=== PATIENT | male | born 1975 | race Caucasian/White ===

== ENCOUNTER → 2019-09-30 | Outpatient (CLI) | payer OTHER ==
--- NOTE | 2019-09-30 11:53 | RADIOLOGY REPORT (SQ) ---
EXAM DESCRIPTION: C SP 4 OR 5 VIEWS IMAGES COMPLETED DATE/TIME: 09/30/2019 11:22 am REASON FOR STUDY: RADICULOPATHY, CERVICAL REGION M25.561 PAIN IN RIGHT KNEE M54.12 RADICULOPATHY, CERVICAL REGION COMPARISON: None. NUMBER OF VIEWS: Five views. TECHNIQUE: AP, lateral, obliques and odontoid radiographic images acquired of the cervical spine. LIMITATIONS: None. FINDINGS: MINERALIZATION: Normal. ALIGNMENT: Anatomic. VERTEBRAE: Vertebral bodies of normal height. DISCS: No significant osteophytes or sclerosis. Disc height maintained. FORAMINA: Moderate to moderate severe narrowing on the left at C3-C4 and mild changes at C4-C5. LATERAL AND POSTERIOR ELEMENTS: Facets, lateral masses and spinous processes without significant find ings. HARDWARE: None in the spine. SOFT TISSUES: No masses or calcifications. Lung apices clear. OTHER: No other significant finding. IMPRESSION: 1. No acute osseous findings. 2. Moderate to moderate foraminal narrowing suggested on the left at C3-C4 and mild changes at C4-C5 . TECHNICAL DOCUMENTATION: JOB ID: [id number] 2010 [employer]- All Rights Reserved Reading location - IP/workstation name: [email or web address]
--- NOTE | 2019-09-30 11:54 | RADIOLOGY REPORT (SQ) ---
EXAM DESCRIPTION: KNEE LEFT 4 VIEWS IMAGES COMPLETED DATE/TIME: 09/30/2019 11:22 am REASON FOR STUDY: PAIN IN LT KNEE M25.561 PAIN IN RIGHT KNEE M54.12 RADICULOPATHY, CERVICAL REGION COMPARISON: None. NUMBER OF VIEWS: Four views. TECHNIQUE: AP, lateral, and both oblique radiographic images acquired of the left knee. LIMITATIONS: None. FINDINGS: MINERALIZATION: Normal. BONES: No acute fracture or dislocation. No worrisome bone lesions. JOINT: No effusion. SOFT TISSUES: No soft tissue swelling. No radio-opaque foreign body. OTHER: No other significant finding. IMPRESSION: 1. NEGATIVE STUDY OF THE LEFT KNEE. TECHNICAL DOCUMENTATION: JOB ID: [id number] 2010 [employer]- All Rights Reserved Reading location - IP/workstation name: [email or web address]
--- NOTE | 2019-09-30 11:56 | RADIOLOGY REPORT (SQ) ---
EXAM DESCRIPTION: KNEE RIGHT 4 VIEWS IMAGES COMPLETED DATE/TIME: 09/30/2019 11:22 am REASON FOR STUDY: PAIN IN RT KNEE M25.561 PAIN IN RIGHT KNEE M54.12 RADICULOPATHY, CERVICAL REGION COMPARISON: None. NUMBER OF VIEWS: Four views. TECHNIQUE: AP, lateral, and both oblique radiographic images acquired of the right knee. LIMITATIONS: None. FINDINGS: MINERALIZATION: Normal. BONES: No acute fracture or dislocation. No worrisome bone lesions. JOINT: No effusion. SOFT TISSUES: No soft tissue swelling. A small opaque pellet in the posterolateral soft tissues of t he upper right lower extremity. OTHER: No other significant finding. IMPRESSION: 1. No acute osseous findings. TECHNICAL DOCUMENTATION: JOB ID: [id number] 2010 [employer]- All Rights Reserved Reading location - IP/workstation name: [email or web address]
== END ==
LOC: OD 10:32
PROVIDERS: ATTEND Family Medicine
DX: M25.561 Pain in right knee (principal); M54.12 Radiculopathy, cervical region
CPT/HCPCS: 72050

== ENCOUNTER 2020-02-16 05:48 | Inpatient (IN) | payer OTHER ==
[2020-02-16 06:33] LABS: ABSOLUTE LYMPHOCYTES (AUTO) 1.3 10^3/uL (0.5-4.7); ABSOLUTE MONOCYTES (AUTO) 0.4 10^3/uL (0.1-1.4); ABSOLUTE NEUT (AUTO) 2.4 10^3/uL (1.7-8.2); BASOPHILS % (AUTO) 0.5 % (0-2); EOSINOPHILS % (AUTO) 0.1 % (0-6); HEMATOCRIT 41.2 % (37.9-51.0); HEMOGLOBIN 13.9 g/dL (13.5-17.0); LYMPHOCYTES % (AUTO) 31.5 % (13-45); MEAN CORPUSCULAR HEMOGLOBIN 27.1 pg (27.0-33.4); MEAN CORPUSCULAR HGB CONC 33.7 g/dL (32.0-36.0); MEAN CORPUSCULAR VOLUME 80 fl (80-97); MONOCYTES % (AUTO) 9.4 % (3-13); PLATELET COUNT 121 10^3/uL (150-450); RED BLOOD COUNT 5.13 10^6/uL (4.35-5.55); RED CELL DISTRIBUTION WIDTH 15.2 % (11.5-14.0); SEGMENTED NEUTROPHILS % (AUTO) 58.5 % (42-78); TOTAL CELLS COUNTED % (AUTO) 100 %
[2020-02-16 06:48] LABS: VENOUS BLOOD BASE EXCESS 2.2 mmol/L; VENOUS BLOOD HCO3 27.1 mmol/L (20-32); VENOUS BLOOD PCO2 43.2 mmHg (35-63); VENOUS BLOOD PH 7.42 (7.30-7.42)
--- NOTE | 2020-02-16 07:00 | RADIOLOGY REPORT (SQ) ---
EXAM DESCRIPTION: XR CHEST 1 VIEW COMPLETED DATE/TME: 02/16/2020 06:38 CLINICAL HISTORY: SOB COMPARISON: None. FINDINGS: Single frontal radiograph view of the chest. Cardiomediastinal silhouette: Normal size and contour. Lungs: Leads overlie the chest. Patchy bilateral airspace opacities. Low lung volumes. No pneumothorax. Respiratory motion artifact. Bones: No acute osseous abnormality. Upper abdomen: No abnormality identified. IMPRESSION: 1. Patchy bilateral airspace opacities concerning for pneumonia.
[2020-02-16 07:08] LABS: APPEARANCE,URINE SLIGHTLY-CLOUDY; BILIRUBIN,URINE NEGATIVE (NEGATIVE); COLOR,URINE YELLOW; GLUCOSE, URINE NEGATIVE (NEGATIVE); KETONES,URINE TRACE mg/dL (NEGATIVE); LEUKOCYTE ESTERASE,URINE NEGATIVE (NEGATIVE); NITRITE,URINE NEGATIVE (NEGATIVE); PROTEIN,URINE 30 mg/dL (NEGATIVE); URINE SPECIFIC GRAVITY 1.024
[2020-02-16 07:14] LABS: ALBUMIN 3.9 g/dL (3.5-5.0); ALKALINE PHOSPHATASE 66 U/L (38-126); ANION GAP 9 (5-19); ASPARTATE AMINO TRANSFERASE 52 U/L (17-59); BILIRUBIN,DIRECT 0.2 mg/dL (0.0-0.4); BILIRUBIN,TOTAL 0.6 mg/dL (0.2-1.3); BLOOD UREA NITROGEN 11 mg/dL (7-20); CALCIUM 8.5 mg/dL (8.4-10.2); CARBON DIOXIDE 28 mmol/L (22-30); CHLORIDE 100 mmol/L (98-107); GLUCOSE 132 mg/dL (75-110); POTASSIUM 4.1 mmol/L (3.6-5.0); TOTAL PROTEIN 7.5 g/dL (6.3-8.2)
[2020-02-16] MEDS ORDERED: AZITHROMYCIN INJ 500 MG VIAL IV ONE (07:39)
[2020-02-16] MEDS ORDERED: NORMAL SALINE 1000 ML 1,000 ML IV ONE (07:41)
[2020-02-16] MEDS ORDERED: ACETAMINOPHEN 325 MG TABLET PO ONE (08:24)
[2020-02-16 09:27] LABS: C-REACTIVE PROTEIN 41.5 mg/L (<10.0)
[2020-02-16 09:37] LABS: NT PRO BNP 18 pg/mL (<125)
[2020-02-16 09:41] LABS: TROPONIN I < 0.012 ng/mL
[2020-02-16] MEDS ORDERED: DEXAMETHASONE SOD PHOS INJ 10 MG/1 ML VIAL IV ONE (09:46)
--- NOTE | 2020-02-16 11:09 | RADIOLOGY REPORT (SQ) ---
EXAM DESCRIPTION: CTA CHEST IMAGES COMPLETED DATE/TIME: 02/16/2020 10:46 am REASON FOR STUDY: sobr/covid positive/elevated d dimer COMPARISON: 02/16/2020 TECHNIQUE: CT scan of the chest performed using helical scanning technique with dynamic intravenous contrast injection. Images reviewed with lung, soft tissue and bone windows. Reconstructed coronal and sagittal MPR images reviewed. Additional 3 dimensional post-processing performed to develop Maximal Intensity Projection images ([place] P). All images stored on PACS. All CT scanners at this facility use dose modulation, iterative reconstruction, and/or weight based d osing when appropriate to reduce radiation dose to as low as reasonably achievable (ALARA). [facility]: Dose Right [facility]: CareDose [facility]: Dose Right [facility]: Teradose 4D [facility]: [employer] CONTRAST TYPE AND DOSE: contrast/concentration: Isovue 350.00 mmol/ml; Total Contrast Delivered: 75. 0 ml; Total Saline Delivered: 46.6 ml Contrast bolus optimized for the pulmonary arteries. Not diagnostic for the aorta. RENAL FUNCTION: GFR > 60. RADIATION DOSE: CT Rad equipment meets quality standard of care and radiation dose reduction techniq ues were employed. CTDIvol: 28.1 - 56.5 mGy. DLP: 1964 mGy-cm. . LIMITATIONS: None. FINDINGS: LUNGS AND PLEURA: Diffuse dense parenchymal opacities throughout both lungs. No effusion or pneumothorax. AORTA AND GREAT VESSELS: No aneurysm. Contrast bolus not optimized for the aorta. HEART: No pericardial effusion. No significant coronary artery calcifications. PULMONARY ARTERIES: No emboli visualized in the main pulmonary arteries or the segmental branches. HILAR AND MEDIASTINAL STRUCTURES: No identified masses or abnormal nodes. HARDWARE: None in the chest. UPPER ABDOMEN: Fatty liver. THYROID AND OTHER SOFT TISSUES: No masses. No adenopathy. BONES: No acute or significant finding. 3D MIPS: Confirm above findings. OTHER: No other significant finding. IMPRESSION: Diffuse opacities typical of covid 19. No pulmonary emboli. COMMENT: Quality ID # [id number]: Final reports with documentation of one or more dose reduction techniques (e.g., Automated exposure control, adjustment of the mA and/or kV according to patient size, use of iterative reconstruction technique) TECHNICAL DOCUMENTATION: JOB ID: [id number] 2010 [employer]- All Rights Reserved Reading location - IP/workstation name: [email or web address]
--- NOTE | 2020-02-16 12:38 | ER Document Report ---
Entered by RUSLAN CANTU SCRIBE 02/16/20 0638 Acting as scribe for:SELENE SIMMONS MD ED Respiratory Problem - General Chief Complaint: Shortness Of Breath Stated Complaint: DIFFICULTY BREATHING Primary Care Provider: DIMITRI JETT DO [Primary Care Provider] - Follow up as needed Mode of Arrival: Wheelchair Information source: Patient Notes: This 44 year old male patient with a history of type 2 diabetes mellitus on Metformin presents to the ED today for evaluation after waking up short of breath. Patient states that he went on vacation in [place] on 01/28 with a group of friends and the of one of his friends tested positive for COVID on 02/04. He states that he became symptomatic on 02/07 with persistent productive cough with "white, foamy" sputum, body aches, and headache. He notes that he lost his sense of taste on 02/18 and was tested for COVID at the [facility] at that time; he received positive results yesterday. He also notes intermittent fevers with a temperature of 100. Denies sore throat, nausea, vomiting, diarrhea, or abdominal pain. Denies respiratory or cardiac history. Never smoker. No known drug allergies. TRAVEL OUTSIDE OF THE [place] IN LAST 30 DAYS: No - Related Data Allergies/Adverse Reactions: No Known Allergies Allergy (Unverified 02/16/20 05:55) Past Medical History - General Information source: Patient - Social History Smoking Status: Never Smoker Cigarette use (# per day): No Chew tobacco use (# tins/day): No Smoking Education Provided: No Lives with: Spouse/Significant other Family History: Reviewed & Not Pertinent Endocrine Medical History: Reports: Hx Diabetes Mellitus Type 2 Past Surgical History: Reports: Hx Orthopedic Surgery Review of Systems - Review of Systems Constitutional: See HPI, Fever, Recent illness EENT: See HPI, Other - Loss of taste. denies: Throat pain Cardiovascular: No symptoms reported Respiratory: See HPI, Cough, Short of breath, Sputum Gastrointestinal: See HPI. denies: Abdominal pain, Diarrhea, Nausea, Vomiting Genitourinary: No symptoms reported Male Genitourinary: No symptoms reported Musculoskeletal: See HPI, Muscle pain Skin: No symptoms reported Hematologic/Lymphatic: No symptoms reported Neurological/Psychological: See HPI, Headaches -: Yes All other systems reviewed and negative Physical Exam - Vital signs Vitals: Temp Pulse Resp BP Pulse Ox 99.7 F 111 H 18 140/95 H 92 02/16/20 05:52 02/16/20 05:52 02/16/20 05:52 02/16/20 05:52 02/16/20 05:52 - General General appearance: Alert In distress: None - HEENT Head: Normocephalic, Atraumatic Eyes: Normal Extraocular movements intact: Yes Pupils: PERRL Neck: Normal, Supple. No: Lymphadenopathy - Respiratory Respiratory status: Other - Patient desats to 91% when taken off O2. When placed back on 4L via NC, sats improve to 96-97%. Chest status: Nontender Breath sounds: Decreased air movement - Diminished breath sounds in the bases, Rales - Rales in the bases bilaterally Chest palpation: Normal - Cardiovascular Rhythm: Regular Heart sounds: Normal auscultation Murmur: No - Abdominal Inspection: Normal Distension: No distension Bowel sounds: Normal Tenderness: Nontender - Abdomen soft Organomegaly: No organomegaly - Back Back: Normal, Nontender - Extremities General upper extremity: Normal inspection General lower extremity: Normal inspection. No: Edema - Neurological Neuro grossly intact: Yes Orientation: AAOx4 Jose Coma Scale Eye Opening: Spontaneous Jose Coma Scale Verbal: Oriented Jose Coma Scale Motor: Obeys Commands [place] Coma Scale Total: 15 - Psychological Associated symptoms: Normal affect, Normal mood - Skin Skin Temperature: Warm Skin Moisture: Dry Skin Color: Normal Course - Re-evaluation Re-evalutation: 02/16/20 12:48 Patient receiving IV fluids IV Zithromax and has been given IV Decadron. Tylenol is been given for fever. - Vital Signs Vital signs: Temp Pulse Resp BP Pulse Ox 98.9 F 111 H 20 132/75 H 97 02/16/20 09:02 02/16/20 05:52 02/16/20 11:19 02/16/20 11:19 02/16/20 11:19 02/16/20 12:49 Vital signs on 4 L nasal cannula shows pulse oximetry 97%. Tachycardia at 111 afebrile respiratory rate 20. - Laboratory Results Result Diagrams: 02/16/20 06:17 02/16/20 06:17 Laboratory Results Interpreted: 02/16/20 02/16/20 02/16/20 06:17 06:17 06:34 RDW 15.2 H Plt Count 121 L D-Dimer Sodium 136.5 L Glucose 132 H ALT 62 H Lactate Dehydrogenase C-Reactive Protein Urine Protein 30 H Urine Ketones TRACE H Urine Urobilinogen 4.0 H Urine Ascorbic Acid 40 H 02/16/20 02/16/20 08:10 08:10 RDW Plt Count D-Dimer 1.79 H Sodium Glucose ALT Lactate Dehydrogenase 307 H C-Reactive Protein 41.5 H Urine Protein Urine Ketones Urine Urobilinogen Urine Ascorbic Acid Laboratories show markers that are consistent with COVID-19 with elevated C- reactive protein lactic dehydrogenase C-reactive protein D-dimer elevation. 02/16/20 12:51 Labs- Entire Visit 02/16/20 02/16/20 02/16/20 06:17 06:17 06:17 WBC 4.0 RBC 5.13 Hgb 13.9 Hct 41.2 MCV 80 MCH 27.1 MCHC 33.7 RDW 15.2 H Plt Count 121 L Lymph % (Auto) 31.5 [place] % (Auto) 9.4 Eos % (Auto) 0.1 Baso % (Auto) 0.5 Absolute Neuts (auto) 2.4 Absolute Lymphs (auto) 1.3 Absolute Monos (auto) 0.4 Absolute Eos (auto) 0.0 Absolute Basos (auto) 0.0 Seg Neutrophils % 58.5 D-Dimer VBG pH 7.42 VBG pCO2 43.2 VBG HCO3 27.1 VBG Base Excess 2.2 Sodium 136.5 L Potassium 4.1 Chloride 100 Carbon Dioxide 28 Anion Gap 9 BUN 11 Creatinine 0.73 Est GFR ( Amer) > 60 Est GFR (MDRD) Non-Af > 60 Glucose 132 H Lactic Acid Calcium 8.5 Ferritin Total Bilirubin 0.6 Direct Bilirubin 0.2 Neonat Total Bilirubin Not Reportable Neonat Direct Bilirubin Not Reportable Neonat Indirect Bili Not Reportable AST 52 ALT 62 H Alkaline Phosphatase 66 Lactate Dehydrogenase Troponin I C-Reactive Protein NT-Pro-B Natriuret Pep Total Protein 7.5 Albumin 3.9 Urine Color Urine Appearance Urine pH Ur Specific [place] Urine Protein Urine Glucose (UA) Urine Ketones Urine Blood Urine Nitrite Urine Bilirubin Urine Urobilinogen Ur Leukocyte Esterase Urine WBC (Auto) Urine RBC (Auto) Urine Bacteria (Auto) Squamous Epi Cells Auto Urine Mucus (Auto) Urine Ascorbic Acid 02/16/20 02/16/20 02/16/20 06:34 08:10 08:10 WBC RBC Hgb Hct MCV MCH MCHC RDW Plt Count Lymph % (Auto) [place] % (Auto) Eos % (Auto) Baso % (Auto) Absolute Neuts (auto) Absolute Lymphs (auto) Absolute Monos (auto) Absolute Eos (auto) Absolute Basos (auto) Seg Neutrophils % D-Dimer VBG pH VBG pCO2 VBG HCO3 VBG Base Excess Sodium Potassium Chloride Carbon Dioxide Anion Gap BUN Creatinine Est GFR ( Amer) Est GFR (MDRD) Non-Af Glucose Lactic Acid Calcium Ferritin 141.00 Total Bilirubin Direct Bilirubin Neonat Total Bilirubin Neonat Direct Bilirubin Neonat Indirect Bili AST ALT Alkaline Phosphatase Lactate Dehydrogenase 307 H Troponin I < 0.012 C-Reactive Protein 41.5 H NT-Pro-B Natriuret Pep 18 Total Protein Albumin Urine Color YELLOW Urine Appearance SLIGHTLY-CLOUDY Urine pH 5.0 Ur Specific [place] 1.024 Urine Protein 30 H Urine Glucose (UA) NEGATIVE Urine Ketones TRACE H Urine Blood NEGATIVE Urine Nitrite NEGATIVE Urine Bilirubin NEGATIVE Urine Urobilinogen 4.0 H Ur Leukocyte Esterase NEGATIVE Urine WBC (Auto) 2 Urine RBC (Auto) 0 Urine Bacteria (Auto) TRACE Squamous Epi Cells Auto 1 Urine Mucus (Auto) OCC Urine Ascorbic Acid 40 H 02/16/20 02/16/20 08:10 08:10 WBC RBC Hgb Hct MCV MCH MCHC RDW Plt Count Lymph % (Auto) [place] % (Auto) Eos % (Auto) Baso % (Auto) Absolute Neuts (auto) Absolute Lymphs (auto) Absolute Monos (auto) Absolute Eos (auto) Absolute Basos (auto) Seg Neutrophils % D-Dimer 1.79 H VBG pH VBG pCO2 VBG HCO3 VBG Base Excess Sodium Potassium Chloride Carbon Dioxide Anion Gap BUN Creatinine Est GFR ( Amer) Est GFR (MDRD) Non-Af Glucose Lactic Acid 0.9 Calcium Ferritin Total Bilirubin Direct Bilirubin Neonat Total Bilirubin Neonat Direct Bilirubin Neonat Indirect Bili AST ALT Alkaline Phosphatase Lactate Dehydrogenase Troponin I C-Reactive Protein NT-Pro-B Natriuret Pep Total Protein Albumin Urine Color Urine Appearance Urine pH Ur Specific [place] Urine Protein Urine Glucose (UA) Urine Ketones Urine Blood Urine Nitrite Urine Bilirubin Urine Urobilinogen Ur Leukocyte Esterase Urine WBC (Auto) Urine RBC (Auto) Urine Bacteria (Auto) Squamous Epi Cells Auto Urine Mucus (Auto) Urine Ascorbic Acid Critical Laboratory Results Reviewed: Yes Attending or Supervising Physician who Reviewed Labs: SELENE SIMMONS - COVID-19 pneumonia markers present - Radiology Results Radiology Results Interpreted: 02/16/20 11:21 Chest X-Ray 02/16/20 05:57 IMPRESSION: 1. Patchy bilateral airspace opacities concerning for pneumonia. Chest/Abdomen CTA 02/16/20 09:45 IMPRESSION: Diffuse opacities typical of covid 19. No pulmonary emboli. Critical Radiology Results Reviewed: Yes Attending or Supervising Physician who Reviewed Radiology: SELENE SIMMONS - Covid pneumonia. - EKG Interpretation by Me Additional EKG results interpreted by me: Twelve-lead EKG shows sinus tachycardia rate of 101 normal axis normal PA interval normal QRS interval normal QT interval. No evidence for STEMI . - Consults KIRK Mccall, Hospitalist Time consulted: 12:31 Consulted provider: will come to ER Discharge - Discharge Clinical Impression: COVID-19 virus RNA test result positive at limit of detection, Low O2 saturation Condition: Serious Disposition: ADMITTED INPATIENT Admitting Provider: Karen Unit Admitted: IMCU Referrals: DIMITRI JETT DO [Primary Care Provider] - Follow up as needed I personally performed the services described in the documentation, reviewed and edited the documentation which was dictated to the scribe in my presence, and it accurately records my words and actions.
[2020-02-16] MEDS ORDERED: DEXTROSE 50%-WATER 25 GM/50 ML DISP.SYRIN IV PRN ×2 (15:10)
[2020-02-16] MEDS ORDERED: IPRATROPIUM/ALBUTEROL 0.5-2.5 MG/3 ML AMPUL NEB PRN (15:10)
[2020-02-16] MEDS ORDERED: DEXTROSE 40% GEL 15 GM TUBE PO PRN ×2 (15:10)
[2020-02-16] MEDS ORDERED: ONDANSETRON 4 MG TAB.RAPDIS PO PRN (15:10)
[2020-02-16] MEDS ORDERED: ACETAMINOPHEN 325 MG TABLET PO PRN (15:10)
[2020-02-16] MEDS ORDERED: GLUCAGON,HUMAN RECOMB 1 MG INJ IM PRN (15:10)
[2020-02-16] MEDS ORDERED: IVERMECTIN 3 MG TABLET PO SCH (15:30)
[2020-02-16] MEDS ORDERED: IPRATROPIUM/ALBUTEROL 0.5-2.5 MG/3 ML AMPUL NEB ONE (16:00)
[2020-02-16] MEDS: INSULIN LISPRO 100 UNIT/ML 3 ML VIAL SUBCUT SCH ×2 (17:12→21:41)
[2020-02-16] MEDS: IVERMECTIN 3 MG TABLET PO SCH (18:36)
[2020-02-16] MEDS: ASCORBIC ACID 500 MG TABLET PO SCH (18:37)
--- NOTE | 2020-02-16 19:35 | PDOC H&P ---
History of Present Illness Admission Date/PCP: 02/16/20 13:15 Patient complains of: Shortness of breath, positive covid, cough History of Present Illness: LUCIA TABOR is a 44 year old male with PMHx DMII (Metformin) and + Covid test 02/13 who presented to the Emergency department wit hx1 week hx progressively worsening shortness of breath and cough. Symptoms increase on exertion. Reports associated body aches, headache and intermitted fever. Has had minimal relief with Tylenol and musinex. Recorded an O2 sat in low 80s at home. O2 sat 87% on initial presentation in ED. Chest XR and CTA consistent with/concerning for COVID pneumonia and his inflammatory markers (CRP, ferritin, LDH, D-dimer) are all elevated. He is currently requiring oxygen supplemen tation, 95% on 4L. Given his increased work of breathing and positive imaging/labs he has been referred to the hospitalist team for further evaluation, treatment and management. Will admit patient to telemetry. Past Medical History Cardiac Medical History: Reports: Hypertension - does not currently treat Denies: Congestive Heart Failure, Myocardial Infarction, Pulmonary Embolism, Heart Murmur Pulmonary Medical History: Denies: Asthma, Bronchitis, Chronic Obstructive Pulmonary Disease (COPD), Intubation, Sleep Apnea Neurological Medical History: Denies: Hemorrhagic CVA, Ischemic CVA Endocrine Medical History: Reports: Diabetes Mellitus Type 2 Denies: Hyperthyroidism, Hypothyroidism Renal/ Medical History: Denies: Chronic Kidney Disease, End Stage Renal Disease GI Medical History: Denies: Cirrhosis, Diverticulitis, Gastroesophageal Reflux Disease Psychiatric Medical History: Denies: Attention Deficit Hyperactivity Disorder, Depression, Substance Abuse, Tobacco Dependency Hematology: Denies: Bleeding Tendencies Infectious Medical History: Denies: Methicillin-Resistant Staph Aureus, Vancomycin-Resistant Enterococci Past Surgical History Past Surgical History: Reports: Orthopedic Surgery Social History Information Source: Patient Lives with: Spouse/Significant other Smoking Status: Never Smoker Electronic Cigarette use?: No Frequency of Alcohol Use: None Hx Recreational Drug Use: No Drugs: None Hx Prescription Drug Abuse: No - Advance Directive Resuscitation Status: Full Code Family History Family History: Hypertension Parental Family History Reviewed: Yes Children Family History Reviewed: Yes Sibling(s) Family History Reviewed.: Yes Medication/Allergy Allergies/Adverse Reactions: No Known Allergies Allergy (Unverified 02/16/20 05:55) Review of Systems Constitutional: PRESENT: headache(s), other - Generalized weakness. ABSENT: anorexia, chills, fatigue Nose, Mouth, and Throat: PRESENT: headache(s). ABSENT: sore throat Cardiovascular: PRESENT: dyspnea on exertion. ABSENT: chest pain, edema, orthropnea, palpitations Respiratory: PRESENT: cough, dyspnea. ABSENT: sputum Gastrointestinal: ABSENT: abdominal pain, nausea, vomiting Genitourinary: ABSENT: difficulty urinating Musculoskeletal: PRESENT: back pain, other - Myalgia Integumentary: ABSENT: diaphoresis Neurological: ABSENT: confusion, syncope, tremor(s), vertigo, weakness Psychiatric: ABSENT: anxiety, depression Hematologic/Lymphatic: ABSENT: easy bleeding Physical Exam Vital Signs: Temp Pulse Resp BP Pulse Ox 97.7 F 86 17 141/96 H 96 02/16/20 15:51 02/16/20 16:35 02/16/20 16:35 02/16/20 16:13 02/16/20 16:35 Intake & Output 02/15/20 02/16/20 02/17/20 06:59 06:59 06:59 Intake Total 1240 Balance 1240 Weight 163.293 kg General appearance: PRESENT: no acute distress, cooperative, obese, other - 4L NC, O2 sat 95%. Head exam: PRESENT: atraumatic, normocephalic Eye exam: PRESENT: EOMI, PERRLA. ABSENT: scleral icterus Mouth exam: PRESENT: dry mucosa, neck supple Neck exam: PRESENT: full ROM. ABSENT: JVD, lymphadenopathy Respiratory exam: PRESENT: clear to auscultation tiffany, rhonchi - diffuse, unlabored. ABSENT: rales, tachypnea Cardiovascular exam: PRESENT: RRR, +S1, +S2. ABSENT: diastolic murmur, systolic murmur Pulses: PRESENT: normal radial pulses GI/Abdominal exam: PRESENT: other - Protuberant abdomen Rectal exam: PRESENT: deferred Extremities exam: PRESENT: full ROM. ABSENT: clubbing, pedal edema Musculoskeletal exam: PRESENT: ambulatory, full ROM. ABSENT: deformity Neurological exam: PRESENT: alert, awake, oriented to person, oriented to place, oriented to time, oriented to situation, CN II-XII grossly intact. ABSENT: altered, motor sensory deficit Psychiatric exam: PRESENT: appropriate affect, normal mood Skin exam: PRESENT: dry, intact, warm Results Laboratory Results: 02/16/20 06:17 02/16/20 06:17 02/16/20 02/16/20 02/16/20 06:17 06:17 06:17 WBC 4.0 RBC 5.13 Hgb 13.9 Hct 41.2 MCV 80 MCH 27.1 MCHC 33.7 RDW 15.2 H Plt Count 121 L Seg Neutrophils % 58.5 VBG pH 7.42 VBG pCO2 43.2 VBG HCO3 27.1 VBG Base Excess 2.2 Sodium 136.5 L Potassium 4.1 Chloride 100 Carbon Dioxide 28 Anion Gap 9 BUN 11 Creatinine 0.73 Est GFR ( Amer) > 60 Glucose 132 H Lactic Acid Calcium 8.5 Ferritin Total Bilirubin 0.6 AST 52 Alkaline Phosphatase 66 C-Reactive Protein Total Protein 7.5 Albumin 3.9 Urine Color Urine Appearance Urine pH Ur Specific [place] Urine Protein Urine Glucose (UA) Urine Ketones Urine Blood Urine Nitrite Ur Leukocyte Esterase Urine WBC (Auto) Urine RBC (Auto) 02/16/20 02/16/20 02/16/20 06:34 08:10 08:10 WBC RBC Hgb Hct MCV MCH MCHC RDW Plt Count Seg Neutrophils % VBG pH VBG pCO2 VBG HCO3 VBG Base Excess Sodium Potassium Chloride Carbon Dioxide Anion Gap BUN Creatinine Est GFR ( Amer) Glucose Lactic Acid 0.9 Calcium Ferritin 141.00 Total Bilirubin AST Alkaline Phosphatase C-Reactive Protein 41.5 H Total Protein Albumin Urine Color YELLOW Urine Appearance SLIGHTLY-CLOUDY Urine pH 5.0 Ur Specific [place] 1.024 Urine Protein 30 H Urine Glucose (UA) NEGATIVE Urine Ketones TRACE H Urine Blood NEGATIVE Urine Nitrite NEGATIVE Ur Leukocyte Esterase NEGATIVE Urine WBC (Auto) 2 Urine RBC (Auto) 0 02/16/20 02/16/20 08:10 16:00 Creatine Kinase 75 Troponin I < 0.012 NT-Pro-B Natriuret Pep 18 Impressions: Chest X-Ray 02/16/20 05:57 IMPRESSION: 1. Patchy bilateral airspace opacities concerning for pneumonia. Chest/Abdomen CTA 02/16/20 09:45 IMPRESSION: Diffuse opacities typical of covid 19. No pulmonary emboli. Assessment and Plan - Diagnosis (1) Pneumonia due to COVID-19 virus Is this a current diagnosis for this admission?: Yes Plan: Requiring O2 supplementation with 4L at this time. Covid + 02/13. Inflammatory markers elevated (LDH, CRP, D-dimer, Ferritin) monitor for disease progression. MATH+ protocol initiated: IV steroids, ivermectin, supplements. Goal to wean pt to room air. O2 goal >92%. (2) Acute respiratory failure with hypoxia Is this a current diagnosis for this admission?: Yes Plan: 2/2 Covid pneumonia. Tx as above. (3) Diabetes mellitus type II, controlled Qualifiers: Diabetes mellitus alf insulin use: without termite treater helper use Diabetes mellitus complication status: without complication Qualified Code(s): E11.9 - Type 2 diabetes mellitus without complications Is this a current diagnosis for this admission?: Yes Plan: Home meds include Metformin 500mg BID. Hem A1c with morning labs. Hold home meds, Initiate SSI, Accu-checks Hypoglycemic protocol in place. Diabetic diet. (4) HTN (hypertension) Qualifiers: Hypertension type: essential hypertension Qualified Code(s): I10 - Essential (primary) hypertension Is this a current diagnosis for this admission?: Yes Plan: Historically took Lisinopril at home, has not taken in ~4 years. Monitor BP. Will reintroduce HTN medication if necessary. - Time Time Spent with patient: 35 or more minutes Medications reviewed and adjusted accordingly: Yes Anticipated Discharge Disposition: Home, Self Care Anticipated Discharge Timeframe: within 72 hours - Inpatient Certification Based on my medical assessment, after consideration of the patient's comorbidities, presenting symptoms, or acuity I expect that the services needed warrant INPATIENT care.: Yes I certify that my determination is in accordance with my understanding of Medicare's requirements for reasonable and necessary INPATIENT services [42 CFR 412.3e].: Yes Medical Necessity: Failure to Improve With Outpatient Therapy, Need Close Monit oring Due to Risk of Patient Decompensation, Need For Continuous Telemetry Monitoring, Need for Nebulizer Therapy and Monitoring of Response, Risk of Complication if Not Cared For in Hospital, Risk of Diagnosis Which Will Require Inpatient Eval/Care/Monitoring Post Hospital Care: D/C or Transfer Summary
[2020-02-16] MEDS: FAMOTIDINE 20 MG TABLET PO SCH (21:42)
--- NOTE | 2020-02-16 22:40 | EKG REPORT ---
SEVERITY:- BORDERLINE ECG - SINUS TACHYCARDIA PROBABLE LEFT ATRIAL ABNORMALITY : Confirmed by: Melissa Sen 16-Feb-2020 22:39:54
[2020-02-17 05:22] LABS: ABSOLUTE LYMPHOCYTES (AUTO) 1.3 10^3/uL (0.5-4.7); ABSOLUTE MONOCYTES (AUTO) 0.4 10^3/uL (0.1-1.4); ABSOLUTE NEUT (AUTO) 3.4 10^3/uL (1.7-8.2); BASOPHILS % (AUTO) 0.5 % (0-2); EOSINOPHILS % (AUTO) 0.1 % (0-6); HEMATOCRIT 41.6 % (37.9-51.0); HEMOGLOBIN 13.6 g/dL (13.5-17.0); LYMPHOCYTES % (AUTO) 25.2 % (13-45); MEAN CORPUSCULAR HEMOGLOBIN 26.8 pg (27.0-33.4); MEAN CORPUSCULAR HGB CONC 32.7 g/dL (32.0-36.0); MEAN CORPUSCULAR VOLUME 82 fl (80-97); MONOCYTES % (AUTO) 7.2 % (3-13); PLATELET COUNT 130 10^3/uL (150-450); RED BLOOD COUNT 5.08 10^6/uL (4.35-5.55); RED CELL DISTRIBUTION WIDTH 15.3 % (11.5-14.0); TOTAL CELLS COUNTED % (AUTO) 100 %; WHITE BLOOD COUNT 5.1 10^3/uL (4.0-10.5)
[2020-02-17 05:46] LABS: ANION GAP 6 (5-19); BLOOD UREA NITROGEN 13 mg/dL (7-20); C-REACTIVE PROTEIN 39.6 mg/L (<10.0); CALCIUM 8.6 mg/dL (8.4-10.2); CARBON DIOXIDE 30 mmol/L (22-30); CHLORIDE 100 mmol/L (98-107); CREATINE KINASE 56 U/L (55-170); GLUCOSE 165 mg/dL (75-110); POTASSIUM 4.3 mmol/L (3.6-5.0)
--- NOTE | 2020-02-17 07:35 | EKG REPORT ---
SEVERITY:- BORDERLINE ECG - SINUS RHYTHM BORDERLINE INFERIOR Q WAVES : Confirmed by: Melissa Sen 17-Feb-2020 07:35:02
[2020-02-17] MEDS: INSULIN LISPRO 100 UNIT/ML 3 ML VIAL SUBCUT SCH ×4 (08:50→21:25)
[2020-02-17] MEDS: ASCORBIC ACID 500 MG TABLET PO SCH ×2 (09:37→17:27)
[2020-02-17] MEDS: CHOLECALCIFEROL (D3) 1,000 UNIT (25 MCG) TABLET PO SCH (09:37)
[2020-02-17] MEDS: METHYLPREDNISOLONE INJ 40 MG/1 ML SDV IV SCH (09:38)
[2020-02-17] MEDS: ZINC SULFATE 220 MG CAPSULE PO SCH (09:38)
[2020-02-17] MEDS: FAMOTIDINE 20 MG TABLET PO SCH ×2 (09:38→21:26)
[2020-02-17] MEDS: IVERMECTIN 3 MG TABLET PO SCH (09:43)
[2020-02-17] MEDS ORDERED: ENOXAPARIN SODIUM INJ 30 MG/0.3 ML DISP.SYRIN SUBCUT SCH (10:00)
[2020-02-17] MEDS ORDERED: LISINOPRIL 10 MG TABLET PO SCH (10:00)
[2020-02-17] MEDS ORDERED: DEXAMETHASONE SOD PHOS INJ 10 MG/1 ML VIAL IV SCH (10:00)
--- NOTE | 2020-02-17 13:29 | PDOC PROGRESS REPORT ---
Subjective Date:: 02/17/20 Subjective:: Day 2: Patient seen on morning rounds. He is resting upright in his chair comfortably. 93% on 4 L. Endorses increased shortness of breath, cough on exertion. Otherwise feels comfortable. Discussed with nurse states decreased oxygen to 3 L, patient started into the 80s while exerting himself, increased back up to 4 L since has remained >92%. Patient denies any fever, chills, abdominal pain, nausea vomiting or diarrhea. He still cannot smell anything but can taste. Provides me with no further complaints or concerns at this time. No further concerns per nursing. Reason For Visit: COVID PNEUMONIA,ACUTE HYPOXIC RESPIRATORY FAILURE Physical Exam Vital Signs: Temp Pulse Resp BP Pulse Ox 98.0 F 91 18 142/78 H 92 02/17/20 10:00 02/17/20 08:19 02/17/20 08:19 02/17/20 08:19 02/17/20 08:19 Intake & Output 02/16/20 02/17/20 02/18/20 06:59 06:59 06:59 Intake Total 1240 Balance 1240 Weight 163.293 kg 167 kg Additional comments: General appearance: PRESENT: no acute distress, cooperative, obese, other - 4L NC, O2 sat 94%. Mouth exam: PRESENT: dry mucosa, neck supple Respiratory exam: PRESENT: clear to auscultation tiffany, rhonchi - diffuse, unlabored. ABSENT: rales, tachypnea Cardiovascular exam: PRESENT: RRR, +S1, +S2. ABSENT: diastolic murmur, systolic murmur Musculoskeletal exam: PRESENT: ambulatory, full ROM. ABSENT: deformity Neurological exam: PRESENT: alert, awake, oriented to person, oriented to place, oriented to time, oriented to situation, CN II-XII grossly intact. ABSENT: altered, motor sensory deficit Skin exam: PRESENT: dry, intact, warm Results Laboratory Results: 02/17/20 04:39 02/17/20 04:39 02/17/20 02/17/20 04:39 04:39 WBC 5.1 RBC 5.08 Hgb 13.6 Hct 41.6 MCV 82 MCH 26.8 L MCHC 32.7 RDW 15.3 H Plt Count 130 L Seg Neutrophils % 67.0 Sodium 136.4 L Potassium 4.3 Chloride 100 Carbon Dioxide 30 Anion Gap 6 BUN 13 Creatinine 0.68 Est GFR ( Amer) > 60 Glucose 165 H Calcium 8.6 Ferritin 117.00 C-Reactive Protein 39.6 H 02/16/20 02/16/20 02/17/20 08:10 16:00 04:39 Creatine Kinase 75 56 Troponin I < 0.012 NT-Pro-B Natriuret Pep 18 Impressions: Chest X-Ray 02/16/20 05:57 IMPRESSION: 1. Patchy bilateral airspace opacities concerning for pneumonia. Chest/Abdomen CTA 02/16/20 09:45 IMPRESSION: Diffuse opacities typical of covid 19. No pulmonary emboli. Assessment and Plan - Diagnosis (1) Pneumonia due to COVID-19 virus Is this a current diagnosis for this admission?: Yes (2) Acute respiratory failure with hypoxia Is this a current diagnosis for this admission?: Yes (3) Diabetes mellitus type II, controlled Qualifiers: Diabetes mellitus lobsterman insulin use: without lobsterman use Diabetes mellitus complication status: without complication Qualified Code(s): E11.9 - Type 2 diabetes mellitus without complications Is this a current diagnosis for this admission?: Yes (4) Obstructive sleep apnea Is this a current diagnosis for this admission?: Yes (5) HTN (hypertension) Qualifiers: Hypertension type: essential hypertension Qualified Code(s): I10 - Essential (primary) hypertension Is this a current diagnosis for this admission?: Yes - Plan Summary Summary: Pneumonia due to COVID-19 virus / Acute respiratory failure with hypoxia Requiring O2 supplementation with 4L at this time. Covid + 02/13. Inflammatory markers elevated (LDH, CRP, D-dimer, Ferritin) monitor for disease progression. MATH+ protocol initiated: IV steroids, ivermectin, supplements. Goal to wean pt to room air. O2 goal >92%. Obstructive sleep apnea: Uses CPAP at home, continue. Diabetes mellitus type II, controlled Home meds include Metformin 500mg BID. Hem A1c 6.5 Hold home meds, Initiate SSI, Accu-checks Hypoglycemic protocol in place. Diabetic diet. HTN (hypertension): WNL. Cnt Monitor. Historically took Lisinopril at home, has not taken in ~4 years. Will reintroduce HTN medication if necessary. - Time Time Spent with patient: 25-34 minutes Medications reviewed and adjusted accordingly: Yes Anticipated Discharge Disposition: Home, Self Care Anticipated Discharge Timeframe: within 72 hours
[2020-02-18 05:34] LABS: ABSOLUTE LYMPHOCYTES (AUTO) 1.9 10^3/uL (0.5-4.7); ABSOLUTE MONOCYTES (AUTO) 0.6 10^3/uL (0.1-1.4); ABSOLUTE NEUT (AUTO) 4.2 10^3/uL (1.7-8.2); BASOPHILS % (AUTO) 0.5 % (0-2); EOSINOPHILS % (AUTO) 0.1 % (0-6); HEMOGLOBIN 13.3 g/dL (13.5-17.0); LYMPHOCYTES % (AUTO) 28.6 % (13-45); MEAN CORPUSCULAR HEMOGLOBIN 27.6 pg (27.0-33.4); MEAN CORPUSCULAR HGB CONC 34.1 g/dL (32.0-36.0); MEAN CORPUSCULAR VOLUME 81 fl (80-97); PLATELET COUNT 152 10^3/uL (150-450); RED BLOOD COUNT 4.82 10^6/uL (4.35-5.55); RED CELL DISTRIBUTION WIDTH 15.5 % (11.5-14.0); SEGMENTED NEUTROPHILS % (AUTO) 61.8 % (42-78); TOTAL CELLS COUNTED % (AUTO) 100 %; WHITE BLOOD COUNT 6.7 10^3/uL (4.0-10.5)
[2020-02-18 05:57] LABS: ANION GAP 10 (5-19); BLOOD UREA NITROGEN 15 mg/dL (7-20); C-REACTIVE PROTEIN 35.4 mg/L (<10.0); CALCIUM 8.6 mg/dL (8.4-10.2); CARBON DIOXIDE 26 mmol/L (22-30); CHLORIDE 101 mmol/L (98-107); GLUCOSE 115 mg/dL (75-110); POTASSIUM 4.1 mmol/L (3.6-5.0)
[2020-02-18] MEDS: INSULIN LISPRO 100 UNIT/ML 3 ML VIAL SUBCUT SCH ×4 (08:44→21:00)
[2020-02-18] MEDS: FAMOTIDINE 20 MG TABLET PO SCH ×2 (09:42→21:03)
[2020-02-18] MEDS: ASCORBIC ACID 500 MG TABLET PO SCH ×2 (09:42→17:25)
[2020-02-18] MEDS: METHYLPREDNISOLONE INJ 40 MG/1 ML SDV IV SCH (09:42)
[2020-02-18] MEDS: CHOLECALCIFEROL (D3) 1,000 UNIT (25 MCG) TABLET PO SCH (09:42)
[2020-02-18] MEDS: ZINC SULFATE 220 MG CAPSULE PO SCH (09:42)
[2020-02-18] MEDS: ENOXAPARIN SODIUM INJ 100 MG/1 ML DISP.SYRIN SUBCUT SCH ×2 (09:45→21:03)
[2020-02-18] MEDS ORDERED: ENOXAPARIN SODIUM INJ 150 MG/1 ML DISP.SYRIN SUBCUT SCH (10:00)
--- NOTE | 2020-02-18 18:51 | PDOC PROGRESS REPORT ---
Subjective Date:: 02/18/20 Subjective:: He is feeling better daily. No particular complaints today. Reason For Visit: COVID PNEUMONIA,ACUTE HYPOXIC RESPIRATORY FAILURE Physical Exam Vital Signs: Temp Pulse Resp BP Pulse Ox 98.5 F 88 20 122/80 97 02/18/20 15:45 02/18/20 15:45 02/18/20 15:45 02/18/20 15:45 02/18/20 15:45 Intake & Output 02/17/20 02/18/20 02/19/20 06:59 06:59 06:59 Intake Total 1240 580 Balance 1240 580 Weight 167 kg 168.3 kg General appearance: PRESENT: no acute distress, cooperative Eye exam: ABSENT: scleral icterus Mouth exam: PRESENT: moist Throat exam: ABSENT: post pharyngeal erythema Neck exam: ABSENT: JVD Respiratory exam: PRESENT: clear to auscultation tiffany. ABSENT: wheezes Cardiovascular exam: PRESENT: RRR GI/Abdominal exam: PRESENT: normal bowel sounds, soft. ABSENT: tenderness Extremities exam: ABSENT: pedal edema Neurological exam: PRESENT: alert, awake Psychiatric exam: PRESENT: appropriate affect Skin exam: ABSENT: jaundice, rash Results Laboratory Results: 02/18/20 04:46 02/18/20 04:46 02/18/20 02/18/20 04:46 04:46 WBC 6.7 RBC 4.82 Hgb 13.3 L Hct 39.0 MCV 81 MCH 27.6 MCHC 34.1 RDW 15.5 H Plt Count 152 Seg Neutrophils % 61.8 Sodium 136.7 L Potassium 4.1 Chloride 101 Carbon Dioxide 26 Anion Gap 10 BUN 15 Creatinine 0.69 Est GFR ( Amer) > 60 Glucose 115 H Calcium 8.6 C-Reactive Protein 35.4 H 02/16/20 02/16/20 02/17/20 08:10 16:00 04:39 Creatine Kinase 75 56 Troponin I < 0.012 NT-Pro-B Natriuret Pep 18 Impressions: Chest X-Ray 02/16/20 05:57 IMPRESSION: 1. Patchy bilateral airspace opacities concerning for pneumonia. Chest/Abdomen CTA 02/16/20 09:45 IMPRESSION: Diffuse opacities typical of covid 19. No pulmonary emboli. Assessment and Plan - Diagnosis (1) Acute respiratory failure with hypoxia Is this a current diagnosis for this admission?: Yes (2) Diabetes mellitus type II, controlled Qualifiers: Diabetes mellitus fpc insulin use: without fpc use Diabetes mellitus complication status: without complication Qualified Code(s): E11.9 - Type 2 diabetes mellitus without complications Is this a current diagnosis for this admission?: Yes (3) HTN (hypertension) Qualifiers: Hypertension type: essential hypertension Qualified Code(s): I10 - Essential (primary) hypertension Is this a current diagnosis for this admission?: Yes (4) Obstructive sleep apnea Is this a current diagnosis for this admission?: Yes (5) Pneumonia due to COVID-19 virus Is this a current diagnosis for this admission?: Yes - Plan Summary Summary: Pneumonia due to COVID-19 virus Acute respiratory failure with hypoxia Requiring O2 supplementation with 3L at this time. Covid + 02/13. MATH+ protocol initiated: IV steroids, ivermectin, supplements. Goal to wean pt to room air. O2 goal >92%. Obstructive sleep apnea Uses CPAP at home, continue. Diabetes mellitus type II, controlled Home meds include Metformin 500mg BID. Hem A1c 6.5 Hold home meds, Initiate SSI, Accu-checks Hypoglycemic protocol in place. Diabetic diet. HTN (hypertension) BP WNL. Cnt Monitor. - Time Time Spent with patient: 35 or more minutes Anticipated Discharge Disposition: Home, Self Care Anticipated Discharge Timeframe: within 24 hours
[2020-02-19 04:57] LABS: ABSOLUTE LYMPHOCYTES (AUTO) 2.1 10^3/uL (0.5-4.7); ABSOLUTE MONOCYTES (AUTO) 0.7 10^3/uL (0.1-1.4); ABSOLUTE NEUT (AUTO) 3.5 10^3/uL (1.7-8.2); BASOPHILS % (AUTO) 0.6 % (0-2); EOSINOPHILS % (AUTO) 0.2 % (0-6); HEMATOCRIT 38.9 % (37.9-51.0); HEMOGLOBIN 13.1 g/dL (13.5-17.0); LYMPHOCYTES % (AUTO) 33.4 % (13-45); MEAN CORPUSCULAR HEMOGLOBIN 27.5 pg (27.0-33.4); MEAN CORPUSCULAR HGB CONC 33.6 g/dL (32.0-36.0); MEAN CORPUSCULAR VOLUME 82 fl (80-97); MONOCYTES % (AUTO) 10.2 % (3-13); PLATELET COUNT 149 10^3/uL (150-450); RED BLOOD COUNT 4.76 10^6/uL (4.35-5.55); RED CELL DISTRIBUTION WIDTH 15.2 % (11.5-14.0); SEGMENTED NEUTROPHILS % (AUTO) 55.6 % (42-78); TOTAL CELLS COUNTED % (AUTO) 100 %; WHITE BLOOD COUNT 6.4 10^3/uL (4.0-10.5)
[2020-02-19] MEDS: INSULIN LISPRO 100 UNIT/ML 3 ML VIAL SUBCUT SCH (08:00)
[2020-02-19 09:15] LABS: HEMATOCRIT 40.2 % (37.9-51.0); HEMOGLOBIN 13.4 g/dL (13.5-17.0); MEAN CORPUSCULAR HEMOGLOBIN 27.1 pg (27.0-33.4); MEAN CORPUSCULAR HGB CONC 33.5 g/dL (32.0-36.0); MEAN CORPUSCULAR VOLUME 81 fl (80-97); PLATELET COUNT 144 10^3/uL (150-450); RED BLOOD COUNT 4.96 10^6/uL (4.35-5.55); RED CELL DISTRIBUTION WIDTH 15.1 % (11.5-14.0)
[2020-02-19 09:38] LABS: ANION GAP 7 (5-19); BLOOD UREA NITROGEN 15 mg/dL (7-20); C-REACTIVE PROTEIN 34.7 mg/L (<10.0); CALCIUM 9.1 mg/dL (8.4-10.2); CARBON DIOXIDE 31 mmol/L (22-30); CHLORIDE 100 mmol/L (98-107); GLUCOSE 112 mg/dL (75-110); POTASSIUM 3.8 mmol/L (3.6-5.0)
[2020-02-19] MEDS: FAMOTIDINE 20 MG TABLET PO SCH (10:03)
[2020-02-19] MEDS: METHYLPREDNISOLONE INJ 40 MG/1 ML SDV IV SCH (10:03)
[2020-02-19] MEDS: ENOXAPARIN SODIUM INJ 100 MG/1 ML DISP.SYRIN SUBCUT SCH (10:04)
[2020-02-19] MEDS: ASCORBIC ACID 500 MG TABLET PO SCH (10:04)
[2020-02-19] MEDS: ZINC SULFATE 220 MG CAPSULE PO SCH (10:04)
[2020-02-19] MEDS: CHOLECALCIFEROL (D3) 1,000 UNIT (25 MCG) TABLET PO SCH (10:04)
[2020-02-19 10:52] VITALS: BP 119/69
--- NOTE | 2020-02-19 20:13 | PDOC DISCHARGE SUMMARY ---
Impression - Admit/DC Date/PCP Admission Date/Primary Care Provider: 02/16/20 13:15 Discharge Date: 02/19/20 - Discharge Diagnosis (1) Acute respiratory failure with hypoxia Is this a current diagnosis for this admission?: Yes (2) Diabetes mellitus type II, controlled Is this a current diagnosis for this admission?: Yes (3) HTN (hypertension) Is this a current diagnosis for this admission?: Yes (4) Obstructive sleep apnea Is this a current diagnosis for this admission?: Yes (5) Pneumonia due to COVID-19 virus Is this a current diagnosis for this admission?: Yes - Assessment Summary: Pneumonia due to COVID-19 virus Acute respiratory failure with hypoxia Covid + on 02/13. MATH+ protocol initiated: IV steroids, ivermectin, supplements. Successfully weaned off oxygen and doing well on room air on the day of discharge. Due to elevated d-dimer, he was on therapeutic anticoagulation while inpatient, and discharged with additional 30 days of therapeutic AC. Stable for discharge home with close outpatient follow up. Strict return precautions discussed at length. - Additional Information Resuscitation Status: Full Code Discharge Diet: Regular Discharge Activity: Activity As Tolerated Referrals: DIMITRI JETT DO [NO LOCAL MD] - 03/03/20 4:00 pm Prescriptions: Dexamethasone [Decadron] 6 mg PO DAILY #7 tablet Apixaban [Eliquis 5 mg Tablet] 5 mg PO BID #60 tablet Home Medications: Gabapentin [Neurontin 300 mg Capsule] 300 mg PO DAILY 02/17/20 Metformin HCl [Glucophage 500 mg Tablet] 500 mg PO BID 02/17/20 Apixaban [Eliquis 5 mg Tablet] 5 mg PO BID #60 tablet 02/19/20 Ascorbic Acid [Vitamin C 500 mg Tablet] 500 mg PO BID tablet 02/19/20 Cholecalciferol (Vitamin D3) [Vitamin D3 1000 Unit Tablet] 2,000 unit PO DAILY tablet 02/19/20 Dexamethasone [Decadron] 6 mg PO DAILY #7 tablet 02/19/20 Zinc Sulfate [Zinc-220 Capsule] 220 mg PO DAILY capsule 02/19/20 History of Present Illiness History of Present Illness: LUCIA TABOR is a 44 year old male Physical Exam Vital Signs: Temp Pulse Resp BP Pulse Ox 97.9 F 88 20 119/69 93 02/19/20 10:50 02/19/20 10:50 02/19/20 10:50 02/19/20 10:50 02/19/20 10:50 Intake & Output 02/18/20 02/19/20 02/20/20 06:59 06:59 06:59 Intake Total 2029 Balance 2029 Weight 168.3 kg Results Laboratory Results: WBC 6.0 10^3/uL (4.0-10.5) 02/19/20 08:59 RBC 4.96 10^6/uL (4.35-5.55) 02/19/20 08:59 Hgb 13.4 g/dL (13.5-17.0) L 02/19/20 08:59 Hct 40.2 % (37.9-51.0) 02/19/20 08:59 MCV 81 fl (80-97) 02/19/20 08:59 MCH 27.1 pg (27.0-33.4) 02/19/20 08:59 MCHC 33.5 g/dL (32.0-36.0) 02/19/20 08:59 RDW 15.1 % (11.5-14.0) H 02/19/20 08:59 Plt Count 144 10^3/uL (150-450) L 02/19/20 08:59 Lymph % (Auto) 33.4 % (13-45) 02/19/20 04:25 [place] % (Auto) 10.2 % (3-13) 02/19/20 04:25 Eos % (Auto) 0.2 % (0-6) 02/19/20 04:25 Baso % (Auto) 0.6 % (0-2) 02/19/20 04:25 Absolute Neuts (auto) 3.5 10^3/uL (1.7-8.2) 02/19/20 04:25 Absolute Lymphs (auto) 2.1 10^3/uL (0.5-4.7) 02/19/20 04:25 Absolute Monos (auto) 0.7 10^3/uL (0.1-1.4) 02/19/20 04:25 Absolute Eos (auto) 0.0 10^3/uL (0.0-0.6) 02/19/20 04:25 Absolute Basos (auto) 0.0 10^3/uL (0.0-0.2) 02/19/20 04:25 Seg Neutrophils % 55.6 % (42-78) 02/19/20 04:25 D-Dimer 1.58 ug/mL (0.00-0.50) H 02/19/20 08:59 VBG pH 7.42 (7.30-7.42) 02/16/20 06:17 VBG pCO2 43.2 mmHg (35-63) 02/16/20 06:17 VBG HCO3 27.1 mmol/L (20-32) 02/16/20 06:17 VBG Base Excess 2.2 mmol/L 02/16/20 06:17 Sodium 138.2 mmol/L (137-145) 02/19/20 08:59 Potassium 3.8 mmol/L (3.6-5.0) 02/19/20 08:59 Chloride 100 mmol/L (98-107) 02/19/20 08:59 Carbon Dioxide 31 mmol/L (22-30) H 02/19/20 08:59 Anion Gap 7 (5-19) 02/19/20 08:59 BUN 15 mg/dL (7-20) 02/19/20 08:59 Creatinine 0.76 mg/dL (0.52-1.25) 02/19/20 08:59 Est GFR ( Amer) > 60 (>60) 02/19/20 08:59 Est GFR (MDRD) Non-Af > 60 (>60) 02/19/20 08:59 Glucose 112 mg/dL (75-110) H 02/19/20 08:59 POC Glucose 83 mg/dL (70-110) 02/19/20 07:43 Hemoglobin A1c % 6.5 % (4.7-6.0) H 02/17/20 04:39 Lactic Acid 0.9 mmol/L (0.7-2.1) 02/16/20 08:10 Calcium 9.1 mg/dL (8.4-10.2) 02/19/20 08:59 Ferritin 117.00 ng/mL (17.9-464.0) 02/17/20 04:39 Total Bilirubin 0.6 mg/dL (0.2-1.3) 02/16/20 06:17 Direct Bilirubin 0.2 mg/dL (0.0-0.4) 02/16/20 06:17 Neonat Total Bilirubin Not Reportable 02/16/20 06:17 Neonat Direct Bilirubin Not Reportable 02/16/20 06:17 Neonat Indirect Bili Not Reportable 02/16/20 06:17 AST 52 U/L (17-59) 02/16/20 06:17 ALT 62 U/L (<50) H 02/16/20 06:17 Alkaline Phosphatase 66 U/L (38-126) 02/16/20 06:17 Lactate Dehydrogenase 253 U/L (120-246) H 02/18/20 04:46 Creatine Kinase 56 U/L (55-170) 02/17/20 04:39 Troponin I < 0.012 ng/mL 02/16/20 08:10 C-Reactive Protein 34.7 mg/L (<10.0) H 02/19/20 08:59 NT-Pro-B Natriuret Pep 18 pg/mL (<125) 02/16/20 08:10 Total Protein 7.5 g/dL (6.3-8.2) 02/16/20 06:17 Albumin 3.9 g/dL (3.5-5.0) 02/16/20 06:17 Urine Color YELLOW 02/16/20 06:34 Urine Appearance SLIGHTLY-CLOUDY 02/16/20 06:34 Urine pH 5.0 (5.0-9.0) 02/16/20 06:34 Ur Specific [place] 1.024 02/16/20 06:34 Urine Protein 30 mg/dL (NEGATIVE) H 02/16/20 06:34 Urine Glucose (UA) NEGATIVE mg/dL (NEGATIVE) 02/16/20 06:34 Urine Ketones TRACE mg/dL (NEGATIVE) H 02/16/20 06:34 Urine Blood NEGATIVE (NEGATIVE) 02/16/20 06:34 Urine Nitrite NEGATIVE (NEGATIVE) 02/16/20 06:34 Urine Bilirubin NEGATIVE (NEGATIVE) 02/16/20 06:34 Urine Urobilinogen 4.0 mg/dL (<2.0) H 02/16/20 06:34 Ur Leukocyte Esterase NEGATIVE (NEGATIVE) 02/16/20 06:34 Urine WBC (Auto) 2 /HPF 02/16/20 06:34 Urine RBC (Auto) 0 /HPF 02/16/20 06:34 Urine Bacteria (Auto) TRACE /HPF 02/16/20 06:34 Squamous Epi Cells Auto 1 /HPF 02/16/20 06:34 Urine Mucus (Auto) OCC /LPF 02/16/20 06:34 Urine Ascorbic Acid 40 (NEGATIVE) H 02/16/20 06:34 02/16/20 08:10 Troponin I < 0.012 NT-Pro-B Natriuret Pep 18 Impressions: Chest X-Ray 02/16/20 05:57 IMPRESSION: 1. Patchy bilateral airspace opacities concerning for pneumonia. Chest/Abdomen CTA 02/16/20 09:45 IMPRESSION: Diffuse opacities typical of covid 19. No pulmonary emboli. Stroke Is this a Stroke Patient?: No Acute Heart Failure Is this a Heart Failure Patient?: No
== END 2020-02-19 12:06 | disposition home or self-care (01) | DRG 177 ==
LOC: ER 05:48 → EH 13:15 → 3N 15:03
PROVIDERS: ADMIT Internal Medicine; ATTEND Hospitalist
DX: U07.1 COVID-19 (principal); J12.82 Pneumonia due to coronavirus disease 2019; J96.01 Acute respiratory failure with hypoxia; E11.9 Type 2 diabetes mellitus without complications; I10 Essential (primary) hypertension; G47.33 Obstructive sleep apnea (adult) (pediatric); R79.1 Abnormal coagulation profile; Z79.84 Long term (current) use of oral hypoglycemic drugs; Z79.899 Other long term (current) drug therapy; Z82.49 Family history of ischemic heart disease and other diseases of the circulatory system
CPT/HCPCS: 36415; 71045; 71275; 80048; 80053; 81001; 82550; 82728; 82803; 82962; 83036; 83605; 83615; 83880; 84484; 85025; 85379; 86140; 87040; 93005; 93010; 94640; 96361; 96365; 96375; 99285; J0456; J1100; J1650; J1815; J2920; J3490; J7030